=== PATIENT | female | born 1955 | race Caucasian/White ===

== ENCOUNTER → 2016-09-25 | Outpatient (REF) ==
[~2016-09-25] MED LIST: ASPI1TAB PO; CELE-19 PO; CETI10TA PO; ELIQ5TAB PO; FOLI1TAB2 PO; HYDR200T3 PO; LIPI80TA PO; METH2.5TA PO; METO-346 PO; NEXI40CA PO; POTA20TA PO; PRED5TA PO; SPIR25TA2 PO; TORS20TA2 PO
--- NOTE | 2016-09-25 15:02 | REP ---
PARTIAL LUMBAR SPINE, TWO VIEWS: HISTORY: Degenerative disc disease. COMPARISON: CT, 05/23/2016. There are fractures of the L1 through L5 vertebral bodies with minimal height loss. The intervertebral discs are decreased in height consistent with disc degeneration. Osteophytes are present throughout the lumbar spine. There are 12 mm of grade 2 spondylolisthesis of L5 on S1. There is scoliosis convex to the right. IMPRESSION: Degenerative change as described above. The fractures of the L1 vertebral bodies are new compared to the previous CT examination. CT of the lumbar spine may be helpful for further evaluation. Signed by Maxi Wood MD 09/25/2016 03:02 P
--- NOTE | 2016-09-25 15:03 | REP ---
CERVICAL SPINE, THREE VIEWS: HISTORY: Degenerative disc disease. The cervical spine is visualized from C1 to C5 in the lateral radiograph. There is no acute fracture or subluxation. The C4-5 intervertebral disc is decreased in height consistent with disc degeneration. IMPRESSION: Degenerative change as described above. Signed by Maxi Wood MD 09/25/2016 03:06 P
== END ==
LOC: M SMT 14:11
PROVIDERS: ATTEND Internal Medicine
DX: M50.30 Other cervical disc degeneration, unspecified cervical region (principal); M51.36 Other intervertebral disc degeneration, lumbar region

== ENCOUNTER → 2021-02-03 | Outpatient (CLI) | payer MEDICARE ==
[~2021-02-03] MED LIST changes: -ASPI1TAB PO; +ASPI81TA26 PO; +ASPI81TA86 PO; -CELE-19 PO; +CELE1CAP4 PO; +FOLI1TAB11 PO; -FOLI1TAB2 PO; +KLOR20TA42 PO; +METH2.5T48 PO; -METH2.5TA PO; -POTA20TA PO; +SPIR-10 PO; -SPIR25TA2 PO
--- NOTE | 2021-02-03 15:56 | REP ---
INDICATION: NICOTINE DEPENDENCE. COMPARISON: Multiple the latest 04/18/2017 CT angio chest TECHNIQUE: Axial noncontrast images from the thoracic inlet to the upper abdomen using low-dose lung screening technique (LDCT). As per the protocol only lung window images were sent to the read station for interpretation FINDINGS: There are scattered asymmetric and pleural based density seen bilaterally status quo. There are no new abnormal nodules. Grossly, the mediastinum and pulmonary octaviano are unchanged. Grossly, the imaged upper abdomen and imaged osseous structures are unchanged. IMPRESSION: Mild fibrotic changes and subsegmental atelectatic changes. No abnormal nodule. Lung rads category 1 <Electronically signed by Chucho Norris > 02/03/21 [id number]
== END ==
LOC: M RAD 13:42
PROVIDERS: ATTEND Physician Assistant
DX: Z12.2 Encounter for screening for malignant neoplasm of respiratory organs (principal); F17.218 Nicotine dependence, cigarettes, with other nicotine-induced disorders

== ENCOUNTER 2021-11-14 13:03 | Inpatient (IN) | payer MEDICARE ==
[~2021-11-14 13:03] MED LIST changes: -KLOR20TA42 PO; +POTA-141 PO
[2021-11-14] MEDS ORDERED: methylPREDNISolone 125MG 2ML VIAL IV ONE (14:45)
[2021-11-14 15:12] LABS: BASO # 0.1 10^3/uL (0.0-0.2); BASO % 0.8 % (0.0-1.0); EOS # 0.1 10^3/uL (0.0-0.5); EOS % 0.5 % (0.0-3.0); HEMATOCRIT 44.2 % (36.0-47.0); HEMOGLOBIN 14.5 g/dl (12.0-15.5); LYMPH # 1.7 10^3/uL (1.5-5.0); LYMPH % 13.8 % (24.0-44.0); MEAN CORPUSCULAR HGB CONC 32.8 g/dl (32.0-36.5); MEAN CORPUSCULAR VOLUME 97.6 fl (80.0-96.0); MONO # 0.7 10^3/uL (0.0-0.8); MONO % 6.2 % (2.0-8.0); NEUTROPHILS # 9.4 10^3/uL (1.5-8.5); NEUTROPHILS % 77.9 % (36.0-66.0); PLATELET COUNT, AUTOMATED 233 10^3/uL (150-450); RED BLOOD COUNT 4.53 10^6/uL (4.00-5.40)
[2021-11-14 15:22] LABS: INR 1.27; PROTHROMBIN TIME 16.3 SECONDS (12.7-14.5)
[2021-11-14 15:23] LABS: PARTIAL THROMBOPLASTIN TIME 39.4 SECONDS (25.9-37.0)
[2021-11-14 15:34] LABS: CREATININE FOR GFR 1.28 MG/DL (0.55-1.30); GLOMERULAR FILTRATION RATE 44.3 (>45); POTASSIUM SERUM 3.7 MEQ/L (3.5-5.1)
[2021-11-14 15:39] LABS: CK-MB VALUE MASS 2.4 NG/ML (<3.6); MB/CK RELATIVE INDEX 5.85 (< OR =4)
[2021-11-14] MEDS ORDERED: ISOVUE-370 76% 100ML VIAL As Ordered ONE (15:57)
[2021-11-14] MEDS ORDERED: LEVALBUTEROL 1.25 MG/0.5 ML CONCENTRATE NEB NEB ONE (17:15)
[2021-11-14] MEDS ORDERED: METO1TAB87 PO (18:07)
[2021-11-14] MEDS ORDERED: ALBU8.5H INH (18:07)
[2021-11-14] MEDS ORDERED: FLUT1BLS8 INH (18:07)
[2021-11-14] MEDS ORDERED: HYDR200T3 PO (18:07)
[2021-11-14] MEDS ORDERED: FLUTISP NARES (18:07)
[2021-11-14] MEDS ORDERED: ECOT81TA5 PO (18:07)
[2021-11-14] MEDS ORDERED: HOME MED LIST COMPLETE! XX SCH (18:10)
[2021-11-14] MEDS ORDERED: ALBUTEROL SULFATE 2.5 MG/0.5 ML INH NEB SOLN NEB PRN (18:10)
[2021-11-14] MEDS ORDERED: diazePAM 5MG TABLET PO ONE (18:10)
[2021-11-14] MEDS ORDERED: MOM 30ML SUSPENSION UDC PO PRN (18:10)
[2021-11-14] MEDS ORDERED: ACETAMINOPHEN TAB 650MG DOSE (2X325MG) PO PRN (18:10)
[2021-11-14] MEDS ORDERED: MAALOX 30 ML SUSP *UDC PO PRN (18:10)
[2021-11-14] MEDS: IPRATROPIUM 0.5MG/ALBUTEROL 2.5MG INH SOL UD 3ML (DUONEB) NEB SCH (20:00)
[2021-11-14 20:50] VITALS: BP 110/59
[2021-11-14] MEDS: APIXABAN 5 MG TAB (ELIQUIS) PO SCH (20:57)
[2021-11-14] MEDS ORDERED: ATORVASTATIN 20 MG TAB PO SCH (21:00)
[2021-11-14] MEDS ORDERED: HYDROXYCHLOROQUINE 200 MG TAB PO SCH (21:00)
[2021-11-14 23:48] VITALS: BP 118/75
[2021-11-15] MEDS: IPRATROPIUM 0.5MG/ALBUTEROL 2.5MG INH SOL UD 3ML (DUONEB) NEB SCH ×2 (01:51→07:09)
[2021-11-15 04:00] VITALS: BP 107/62
[2021-11-15 05:37] LABS: HEMATOCRIT 41.1 % (36.0-47.0); HEMOGLOBIN 13.1 g/dl (12.0-15.5); MEAN CORPUSCULAR HGB CONC 31.9 g/dl (32.0-36.5); MEAN CORPUSCULAR VOLUME 97.4 fl (80.0-96.0); PLATELET COUNT, AUTOMATED 202 10^3/uL (150-450); RED BLOOD COUNT 4.22 10^6/uL (4.00-5.40); WHITE BLOOD COUNT 10.1 10^3/uL (4.0-10.0)
[2021-11-15 06:12] LABS: CALCIUM LEVEL 9.1 MG/DL (8.8-10.2); CREATININE FOR GFR 1.38 MG/DL (0.55-1.30); GLOMERULAR FILTRATION RATE 40.6 (>45); MAGNESIUM LEVEL 1.9 MG/DL (1.8-2.4); POTASSIUM SERUM 4.7 MEQ/L (3.5-5.1)
[2021-11-15 08:00] VITALS: BP 112/73
[2021-11-15] MEDS: APIXABAN 5 MG TAB (ELIQUIS) PO SCH (08:13)
[2021-11-15 08:14] VITALS: BP 112/73
[2021-11-15] MEDS ORDERED: FLUTICASONE PROP 0.05% NASAL SPRAY 16 GM (FLONASE) NARES SCH (09:00)
[2021-11-15] MEDS ORDERED: TORSEMIDE 20 MG TAB PO SCH (09:00)
[2021-11-15] MEDS ORDERED: predniSONE 20 MG TAB PO SCH (09:00)
[2021-11-15] MEDS ORDERED: METOPROLOL TART 25 MG TABLET PO SCH (09:00)
[2021-11-15] MEDS ORDERED: ASPIRIN 81MG ENTERIC TABLET PO SCH (09:00)
[2021-11-15] MEDS ORDERED: SPIRONOLACTONE 25 MG TAB PO SCH (09:00)
[2021-11-15] MEDS ORDERED: PRED20TA PO (09:50)
[2021-11-15] MEDS ORDERED: PREVNAR 13 VACCINE SYRINGE IM.IMMUN ONE (11:00)
== END 2021-11-15 14:15 | disposition home health service (06) | DRG 65 ==
LOC: EDBD 13:03 → M ED 13:03 → M ED INP 18:09 → M PCU 20:50
PROVIDERS: ADMIT Family Medicine; ATTEND Family Medicine
DX: I63.9 Cerebral infarction, unspecified (principal); J44.1 Chronic obstructive pulmonary disease with (acute) exacerbation; I25.10 Atherosclerotic heart disease of native coronary artery without angina pectoris; Z95.5 Presence of coronary angioplasty implant and graft; I10 Essential (primary) hypertension; M32.9 Systemic lupus erythematosus, unspecified; Z90.49 Acquired absence of other specified parts of digestive tract; Z85.42 Personal history of malignant neoplasm of other parts of uterus; F17.210 Nicotine dependence, cigarettes, uncomplicated; Z20.822 Contact with and (suspected) exposure to COVID-19; Z79.82 Long term (current) use of aspirin; Z79.01 Long term (current) use of anticoagulants; Z79.899 Other long term (current) drug therapy